=== PATIENT | male | born 1970 | race Caucasian/White ===

== ENCOUNTER 2018-10-24 06:07 | Inpatient (IN) | payer OTHER | END 2018-10-25 14:30 | disposition home or self-care (01) | LOC: ER 06:07 → OVERFLOW 09:17 → WEST WING 11:40 | DX: N13.2 Hydronephrosis with renal and ureteral calculous obstruction (principal); I10 Essential (primary) hypertension; M47.9 Spondylosis, unspecified; E66.9 Obesity, unspecified ==